=== PATIENT | female | born 1975 | race Caucasian/White ===

== ENCOUNTER 2021-05-09 14:29 | Outpatient (CLI) | payer BC | END 2021-05-09 14:30 | disposition home or self-care (01) | LOC: BICMAMMO 14:29 | PROVIDERS: ATTEND Physician Assistant | DX: R92.8 Other abnormal and inconclusive findings on diagnostic imaging of breast (principal); N63.10 Unspecified lump in the right breast, unspecified quadrant | CPT/HCPCS: G0279 ==

== ENCOUNTER → 2021-05-11 | Day surgery (SDC) | payer BC | LOC: BICULT 12:38 | PROC: 0HBT3ZX Excision of Right Breast, Percutaneous Approach, Diagnostic (ICD-10-PCS; principal; 2021-05-11) | DX: D24.1 Benign neoplasm of right breast (principal); Z79.82 Long term (current) use of aspirin | CPT/HCPCS: 19083; 88305 ==